=== PATIENT | male | born 1955 | race Hispanic/Latino ===

== ENCOUNTER 2019-05-12 02:07 | Emergency (ER) | payer MEDICARE ==
[2019-05-12] MEDS ORDERED: CLONAZEPAM 0.5 MG TABLET ONE (04:08)
== END 2019-05-12 04:24 | disposition home or self-care (01) ==
LOC: EDH 02:07
DX: G25.3 Myoclonus (principal); E11.9 Type 2 diabetes mellitus without complications; F41.9 Anxiety disorder, unspecified; I10 Essential (primary) hypertension; Z88.0 Allergy status to penicillin; Z98.890 Other specified postprocedural states